=== PATIENT | male | born 1995 | race Two or more races ===

== ENCOUNTER 2025-10-01 20:26 | Emergency (ER) | payer OTHER ==
[~2025-10-01] VITALS: Ht 172.7 cm; Wt 65.0 kg
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
[2025-10-01 22:24] VITALS: BP 150/84; PULSE 63; RESP 18; TEMP 97.9; O2SAT 98
[2025-10-01] MEDS ORDERED: ACET500T58 PO (22:34)
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
== END 2025-10-01 22:48 | disposition home or self-care (01) ==
LOC: ER 20:26
DX: S00.03XA Contusion of scalp, initial encounter (principal); S00.33XA Contusion of nose, initial encounter; W22.01XA Walked into wall, initial encounter; Y93.89 Activity, other specified; Y92.89 Other specified places as the place of occurrence of the external cause; Y99.8 Other external cause status
CPT/HCPCS: 70450; 70486